=== PATIENT | male | born 1985 | race Caucasian/White ===

== ENCOUNTER 2023-01-19 04:58 | Emergency (ER) | payer BC ==
[~2023-01-19] VITALS: Ht 170.2 cm; Wt 97.5 kg
[2023-01-19 05:13] VITALS: BP_SYST 135
--- NOTE | 2023-01-19 05:20 | NUR ---
Pt triaged by RN and ambulated to bed 8
--- NOTE | 2023-01-19 05:22 | NUR ---
Pt bib self from home, ambulated to bed 8. Pt A&Ox4, able to make needs known. Pt c/o right flank pain since 99. Pt rates pain 07/16. Pt states one episode of vomiting. Pt denies diarrhea, SOB and chest pain. Pt denies fever and chills. Pt has a hx of kidney stones. Safety measures in place.
--- NOTE | 2023-01-19 05:23 | NUR ---
ER Dr. STARKEY at bedside examining patient.
[2023-01-19] MEDS ORDERED: TAMSULOSIN HCL 0.4 MG CAP PO ONE (05:30)
[2023-01-19] MEDS ORDERED: NACL 0.9% 1,000 ML IV ONE (05:30)
[2023-01-19] MEDS ORDERED: KETOROLAC TROMETHAMINE 15 MG VIAL IVP ONE (05:30)
[2023-01-19] MEDS ORDERED: ONDANSETRON HCL 4 MG/2 ML VIAL IVP ONE (06:00)
[2023-01-19 06:07] LABS: CALCIUM 8.8 mg/dL (8.4-11.0); CREATININE 0.85 mg/dL (0.55-1.30)
[2023-01-19 06:11] LABS: ALBUMIN 3.4 g/dL (3.4-4.8); TOTAL BILIRUBIN 0.2 mg/dL (0.0-1.0)
--- NOTE | 2023-01-19 06:21 | NUR ---
CALLED PHARMACY AND SPOKE WITH LUKE FOR rx FLOMAX.
[2023-01-19 07:13] LABS: C-REACTIVE PROTEIN QUANT 1.2 mg/dL (0-0.5)
--- NOTE | 2023-01-19 07:18 | NUR ---
Note natalie in ED - 01/19/23 at 0719 by ADRIAN Pt [facility], no s/s of discomfort noted. Endorsed pt and care to oncoming nurse YASSINE Hamilton.
--- NOTE | 2023-01-19 07:19 | NUR ---
Pt awake and alert standing at bedside hunched over and moaning. Endorsed pt and care to oncoming nurse, YASSINE Hamilton
[2023-01-19 07:39] LABS: BASOPHILS % (AUTO) 0.4 % (0.0-2.0); EOSINOPHILS # (AUTO) 0.1 K/uL (0.0-0.4); EOSINOPHILS % (AUTO) 0.9 % (0.0-4.0); HEMATOCRIT 39.2 % (36-54); HEMOGLOBIN 13.1 g/dL (14.0-18.0); LYMPHOCYTES % (AUTO) 27.2 % (20.5-51.5); MEAN CORPUSCULAR HEMOGLOBIN 30 pg (27-31); MEAN CORPUSCULAR HGB CONC 33 % (32-36); MEAN CORPUSCULAR VOLUME 90 fL (79.0-98.0); MONOCYTES # (AUTO) 0.5 K/uL (0.0-1.0); MONOCYTES % (AUTO) 7.5 % (1.7-9.3); NEUTROPHILS # (AUTO) 4.6 K/uL (1.8-7.7); PLATELET COUNT (AUTO) 280 K/uL (130-430); RED BLOOD CELL COUNT(AUTO) 4.35 MIL/uL (4.2-6.2); RED CELL DISTRIBUTION WIDTH 12.7 % (9.0-15.0); WHITE BLOOD COUNT (AUTO) 7.2 K/uL (4.8-10.8)
[2023-01-19 07:58] LABS: BILIRUBIN,URINE NEGATIVE (NEGATIVE); BLOOD, URINE 3+ (NEGATIVE); COLOR,URINE YELLOW (YELLOW); GLUCOSE,URINE NEGATIVE (NEGATIVE); KETONES,URINE TRACE (NEGATIVE); LEUKOCYTE ESTERASE ,URINE NEGATIVE (NEGATIVE); NITRITE, URINE NEGATIVE (NEGATIVE); PROTEIN URINE TRACE (NEGATIVE); UROBILINOGEN,URINE 0.2 (0.2-1.0)
[2023-01-19] MEDS ORDERED: KETOROLAC TROMETHAMINE 60 MG/2 ML VIAL IM ONE (08:00)
[2023-01-19] MEDS ORDERED: ONDANSETRON 4 MG ODT TAB PO ONE (08:00)
[2023-01-19 08:02] LABS: CLARITY/URINE HAZY (CLEAR)
[2023-01-19 08:20] LABS: BACTERIA,URINE FEW /HPF (None Seen); RBC,URINE 50-80 /HPF (0-3); WBC,URINE 0-3 /HPF (0-3)
[2023-01-19] MEDS ORDERED: IBUP-1971 PO (09:10)
[2023-01-19] MEDS ORDERED: TRAM50TA2 PO (09:10)
--- NOTE | 2023-01-19 09:16 | NUR ---
Patient given written and verbal discharge instructions and verbalizes understanding. ER MD discussed with patient the results and treatment provided. Patient in stable condition. ID arm band removed. IV catheter removed intact and dressing applied, no active bleeding. Rx of ibuprofen and tramadol given. Patient educated on pain management and to follow up with PMD. Opportunity for questions provided and answered. Medication side effect fact sheet provided.
[2023-01-19 10:22] VITALS: BP_SYST 142
== END 2023-01-19 09:16 | disposition home or self-care (01) ==
LOC: SED 04:58 → EDBD 04:58 → SED 09:16
DX: N20.0 Calculus of kidney (principal); R10.9 Unspecified abdominal pain; R11.2 Nausea with vomiting, unspecified; Z79.899 Other long term (current) drug therapy
CPT/HCPCS: 99285; 74176; 96374; 96361; 96375; 80053; 81000; 82150; 83690; 85025; 86140; 36415; 76376; 96372; J1885 ×2; J2405; J7030